=== PATIENT | female | born 1955 | race Caucasian/White ===

== ENCOUNTER → 2017-11-18 17:47 | Outpatient (REF) | payer SELFPAY | LOC: LAB 17:47 | PROVIDERS: PCP Family Medicine; Visit Provider Physician Assistant | DX: Z48.817 Encounter for surgical aftercare following surgery on the skin and subcutaneous tissue (principal) | CPT/HCPCS: 87070; 87075; 87077; 87186; 87205 ==

== ENCOUNTER 2019-02-05 14:41 | Emergency (ER) | payer OTHER, SELFPAY ==
[2019-02-05 14:50] VITALS: BP 149/75; PULSE 85; RESP 13; TEMP 36.5; O2SAT 99
--- NOTE | 2019-02-05 14:56 | DI.RAD.S_ITS ---
PROCEDURE: XR CHEST 1V INDICATIONS: chest pain TECHNIQUE: One view of the chest was acquired. COMPARISON: None. FINDINGS: Surgical changes and devices: None. Lungs and pleura: Lungs are clear. No pleural effusions or pneumothorax. Mediastinum: Mediastinal contours appear normal. Heart size is normal. Bones and chest wall: No suspicious bony lesions. Overlying soft tissues appear unremarkable. IMPRESSION: No acute cardiopulmonary disease. Dictated by: Pratima Herndon M.D. on 02/05/2019 at 15:17 Approved by: Pratima Herndon M.D. on 02/05/2019 at 15:17
[2019-02-05 15:01] LABS: Add Manual Diff / Slide Review NO; Basophils Absolute Auto 0 /uL (0-100); Basophils Percent Auto 1.1 % (0-2); Eosinophils Absolute Auto 100 /uL (0-450); Hemoglobin 13.1 g/dL (12.0-16.0); Lymphocytes Absolute Auto 1600 /uL (1100-4500); Lymphocytes Percent Auto 36.7 % (25-40); Mean Corpuscular HGB Conc 33.7 % (30-36); Mean Corpuscular Volume 88.9 fL (80-100); Monocytes Absolute Auto 400 /uL (0-900); Monocytes Percent Auto 8.3 % (3-14); Neutrophils Absolute Auto 2300 /uL (1500-7000); Neutrophils Percent Auto 51.9 % (50-75); Platelet Count 267 X10^3/uL (150-400); Red Blood Cell Count 4.39 X10^6/uL (4.0-5.2); Red Cell Distribution Width 13.4 % (11.6-14.8); White Blood Cell Count 4.4 X10^3/uL (4.5-11.0)
--- NOTE | 2019-02-05 15:04 | ED.CHESTPAIN ---
HPI - Chest Pain General Chief Complaint: Chest Pain Stated Complaint: Sent by physician for PVCs Time Seen by Provider: 02/05/19 14:52 Source: patient and old records reviewed Mode of arrival: Wheelchair Limitations: no limitations History of Present Illness HPI narrative: The patient is a 63-year-old female who presents with heart palpitations. She has had them off and on for number of years however the progressively are getting worse. She said that she had some this morning while she was eating breakfast if they get quite strong and she feels nauseous. They woke her from her sleep even. She does not really have chest pain she does have some shortness of breath well tapping no nausea or vomiting. MD complaint: other (Palpitations) Related Data Home Medications Medication Instructions Recorded Confirmed omeprazole 20 mg PO QDAY #0 06/21/16 sertraline 25 mg PO QDAY #0 06/21/16 Previous Rx's Medication Instructions Recorded nitrofurantoin monohyd/m-cryst 100 mg PO BID #10 cap 11/04/16 [Macrobid] metoprolol tartrate 12.5 mg PO DAILY #30 tab 02/05/19 Allergies Allergy/AdvReac Type Severity Reaction Status Date / Time penicillin G [PENICILLIN G] Allergy Unknown Unverified 02/05/19 14:49 Review of Systems Review of Systems Narrative: GENERAL: Denies chills, fatigue, malaise, fever, sweats, travel HEENT: Denies sinus pain, ear pain, sore throat, difficulty swallowing, neck pain RESPIRATORY: Denies dyspnea, cough, wheezing, hemoptysis, sputum. CARDIOVASCULAR: See HPI GASTROINTESTINAL: Denies nausea, vomiting, abdominal pain, diarrhea, constipation, melena. : Denies dysuria, frequency, incontinence, hematuria, urinary retention, flank pain. MUSCULOSKELETAL: Denies weakness, joint pain, or bony pain SKIN: No rash, no erythema, no pruritus NEUROLOGIC: Denies weakness, dizziness, headache, numbness, change in speech, confusion PSYCHIATRIC: No concerning psychosocial issues. 12 point review of systems is negative except for those stated above and HPI Patient History Medical History BRCA gene positive (Acute) Liver lesion, right lobe (Acute) Social History Smoking Status: Never smoker alcohol intake frequency: a few times a month Substance Use Type: does not use Exam Initial Vital Signs Initial Vital Signs: Vital Signs Temperature 97.7 F 02/05/19 14:50 Pulse Rate 85 02/05/19 14:50 Respiratory Rate 13 02/05/19 14:50 Blood Pressure 149/75 H 02/05/19 14:50 Pulse Oximetry 99 02/05/19 14:50 GENERAL: Well-appearing, well-nourished and in no acute distress. HEENT: Head atraumatic,EOMI, pupils reactive, face symmetric, moist mucous membranes CARDIOVASCULAR: Regular rate and rhythm without murmurs, rubs or gallops. RESPIRATORY: Breath sounds equal bilaterally, no wheezes rales or rhonchi. ABDOMEN: Soft, nontender. Normoactive bowel sounds all 4 quadrants. No guarding or rebound. EXTREMITIES: Normal range of motion, no clubbing or edema. Neurovascularly intact NEUROLOGICAL: Alert and oriented x4.Normal gait and speech. SKIN: Warm, dry, no laceration, no petechiae, no rashes or lesions. Course Orders Ordered: ED Orders 02/05/19 14:50 Complete Blood Count AUTO DIFF Stat Comprehensive Metabolic Panel Stat Lipase Stat Partial Thromboplastin Time Stat Prothrombin Time INR Stat Troponin & CK Cardiac Panel Stat 02/05/19 14:56 XR chest 1V Stat EKG-12 Lead Stat Vital Signs Vital signs: Vital Signs - 8 hr 02/05/19 14:50 02/05/19 16:11 02/05/19 16:14 Temperature 97.7 F Pulse Rate 85 78 69 Respiratory Rate 13 17 16 Blood Pressure 130/76 Blood Pressure [Left Arm] 149/75 H 118/94 H Pulse Oximetry 99 99 99 MDM - Chest Pain Lab Data Attestation: I reviewed the patient's lab results. Result diagrams: 02/05/19 14:50 02/05/19 14:50 Labs: Lab Results 02/05/19 02/05/19 02/05/19 Range/Units 14:50 14:50 14:50 WBC 4.4 L (4.5-11.0) X10^3/uL RBC 4.39 (4.0-5.2) X10^6/uL Hgb 13.1 (12.0-16.0) g/dL Hct 39.0 (36-46) % MCV 88.9 (80-100) fL MCH 30.0 (26-34) PG MCHC 33.7 (30-36) % RDW 13.4 (11.6-14.8) % Plt Count 267 (150-400) X10^3/uL Neut % (Auto) 51.9 (50-75) % Lymph % (Auto) 36.7 (25-40) % [place] % (Auto) 8.3 (3-14) % Eos % (Auto) 2.0 (2-4) % Baso % (Auto) 1.1 (0-2) % Neut # (Auto) 2300 (0020-6947) /uL Lymph # (Auto) 1600 (2062-6892) /uL [place] # (Auto) 400 (0-900) /uL Eos # (Auto) 100 (0-450) /uL Baso # (Auto) 0 (0-100) /uL PT 10.9 (10.1-12.7) SECONDS INR 0.9 (0.9-1.3) APTT 31 (26.4-36.2) SECONDS Sodium 139 (137-145) mmol/L Potassium 3.5 (3.4-5.1) mmol/L Chloride 103 (98-107) mmol/L Carbon Dioxide 28 (22-32) mmol/L BUN 13 (7-17) mg/dL Creatinine 0.60 (0.52-1.04) mg/dL Estimated GFR > 60.0 (>60) mL/min BUN/Creatinine Ratio 21.7 (6-22) Glucose 106 (80-110) mg/dL Calcium 9.5 (8.4-10.2) mg/dL Total Bilirubin 0.5 (0.2-1.3) mg/dL AST 31 (14-36) IU/L ALT 18 (<35) IU/L Alkaline Phosphatase 57 (38-126) U/L Total Creatine Kinase 71 (30-135) U/L CK-MB (CK-2) TNP CK-MB (CK-2) Rel Index TNP Troponin I < 0.012 (0.01-0.034) ng/mL Total Protein 7.6 (6.3-8.2) g/dL Albumin 4.7 (3.5-5.0) g/dL Globulin 2.9 (1.7-4.1) g/dL Albumin/Globulin Ratio 1.6 (1.0-2.8) Lipase 223 (23-300) U/L Imaging Data Chest x-ray: Radiologist's impression: PROCEDURE: XR CHEST 1V INDICATIONS: chest pain TECHNIQUE: One view of the chest was acquired. COMPARISON: None. FINDINGS: Surgical changes and devices: None. Lungs and pleura: Lungs are clear. No pleural effusions or pneumothorax. Mediastinum: Mediastinal contours appear normal. Heart size is normal. Bones and chest wall: No suspicious bony lesions. Overlying soft tissues appear unremarkable. IMPRESSION: No acute cardiopulmonary disease. Dictated by: Pratima Herndon M.D. on 02/05/2019 at 15:17 ECG Data Attestation: I personally reviewed and interpreted this ECG as follows: Prior ECG tracings: not available for review Interpretation: Normal sinus rhythm rate 76 p.r. interval 165 QRS 88 QTC 451 PVC noted no previous EKG no ST elevations depressions or T-wave inversions. MDM Narrative Medical decision making narrative: Patient is noted to have frequent PVCs on the monitor. She is symptomatic. At this time I think patient would benefit from low dose of beta-vicki. Discharge Plan Departure Patient Disposition: Home Clinical Impression: Frequent PVCs Discharge Date/Time: 02/05/19 16:32 Instructions: Premature Ventricular Beats Activity Restrictions/Additional Instructions: *You have been diagnosed with frequent PVCs *What to do: Typically PVCs are benign however your quite symptomatic. We can start you on a low dose metoprolol to see if it helps your symptoms. *Continue to take medications as directed Metoprolol 12.5 mg once daily *Follow up with your primary care provider in 2-3 days *Return to ER if you should have increasing chest palpitations dizziness lightheadedness or any new, worsening or concerning symptoms Prescriptions: New metoprolol tartrate 25 mg tablet 12.5 mg PO DAILY Qty: 30 RF: 0 No Action sertraline 25 MG tablet 25 mg PO QDAY Qty: 0 RF: 0 omeprazole 20 MG capsule,delayed release(DR/EC) 20 mg PO QDAY Qty: 0 RF: 0 nitrofurantoin monohyd/m-cryst [Macrobid] 100 MG capsule 100 mg PO BID Qty: 10 RF: 0 Referrals: Sajan Bustamante MD [Primary Care Provider] -
[2019-02-05 15:08] LABS: INR 0.9 (0.9-1.3); Prothrombin Time 10.9 SECONDS (10.1-12.7)
[2019-02-05 15:11] LABS: PTT Partial Thromboplastin Tim 31 SECONDS (26.4-36.2)
[2019-02-05 15:17] LABS: Alanine Aminotransferase 18 IU/L (<35); Albumin 4.7 g/dL (3.5-5.0); Albumin Globulin Ratio 1.6 (1.0-2.8); Alkaline Phosphatase 57 U/L (38-126); Aspartate Aminotransferase 31 IU/L (14-36); BUN Creatinine Ratio 21.7 (6-22); Bilirubin Total 0.5 mg/dL (0.2-1.3); Blood Urea Nitrogen 13 mg/dL (7-17); Calcium 9.5 mg/dL (8.4-10.2); Carbon Dioxide 28 mmol/L (22-32); Chloride 103 mmol/L (98-107); Creatine Kinase 71 U/L (30-135); Estimated Glomerular Filt Rate > 60.0 mL/min (>60); Globulin 2.9 g/dL (1.7-4.1); Glucose 106 mg/dL (80-110); HEMOLYSIS 36 (0-50); Lipase 223 U/L (23-300); Potassium 3.5 mmol/L (3.4-5.1); Sodium 139 mmol/L (137-145); Total Protein 7.6 g/dL (6.3-8.2)
[2019-02-05 15:29] LABS: Troponin I < 0.012 ng/mL (0.01-0.034)
[2019-02-05 16:11] VITALS: BP 118/94; PULSE 78; RESP 17; O2SAT 99
[2019-02-05 16:14] VITALS: BP 130/76; PULSE 69; RESP 16; O2SAT 99
== END 2019-02-05 16:32 | disposition home or self-care (01) ==
PROVIDERS: Emergency Provider Emergency Medicine; PCP Family Medicine
DX: I49.3 Ventricular premature depolarization (principal)
CPT/HCPCS: 36415; 71045; 80053; 82550; 83690; 84484; 85025; 85610; 85730; 93005; 99283; 99285

== ENCOUNTER 2019-06-04 11:48 | Day surgery (SDC) | payer MEDICARE, OTHER, SELFPAY ==
[2019-06-04] MEDS: SODIUM CHLORIDE 0.9% 1,000 ML 200 ML IV (12:15)
[2019-06-04] MEDS: HYOSCYAMINE 0.125 MG TABLET PO (12:28)
[2019-06-04 12:29] VITALS: BP 128/82; PULSE 80; RESP 20; TEMP 36.9; O2SAT 100; BMI 23.3
--- NOTE | 2019-06-04 12:47 | PM.HP.1 ---
History of Present Illness History of Present Illness Date Patient Seen: 06/04/19 Chief complaint: [id number] Narrative: 64 year old female comes in today for consideration of a screening colonoscopy. Last colonoscopy in 2009 to the splenic flexure only, secondary to angulation. There have been no lower GI symptoms suggesting disease such as change in bowel habits, bleeding, abdominal pain or anemia. She does have a history of colon cancer in her mother, thought to be metastatic from the breast. Overall health issues have been stable, including no major cardiac events for at least 6 weeks. 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 Cateract surger - bilateral 10/2016 - [facility] Laprascopy (ovaries and tubes) 10/14 - Dr. 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, Teacher Household Members: Education: BA in education Patient History Family & Social History Social History: household members spouse Tobacco & Substance use: Smoking Status Never smoker alcohol intake current alcohol intake frequency a few times a week Substance Use Type does not use Meds Home Medications and Allergies Home Medications Medication Instructions Recorded Confirmed Type omeprazole 20 mg PO QDAY #0 06/21/16 06/04/19 History metoprolol tartrate 12.5 mg PO DAILY #30 tab 02/05/19 06/04/19 Rx Allergies Allergy/AdvReac Type Severity Reaction Status Date / Time penicillin G [PENICILLIN G] Allergy Unknown Rash Verified 06/04/19 12:25 Review of Systems Review of Systems ROS: Yes All systems reviewed with the patient and are negative except as otherwise documented Exam Vital Signs (past 8 hours): - 06/04/19 12:29 Temperature 98.5 F Pulse Rate 80 Respiratory Rate 20 Blood Pressure 128/82 Pulse Oximetry 100 Oxygen Delivery Method Room Air Narrative Exam Narrative: General: Alert and oriented, appearing stated age and in no acute distress. Head: Head normocephalic/atraumatic. Neck: Neck soft and supple, no lymphadenopathy. Lungs: Clear to auscultation bilaterally, no wheezes, rhonchi or rales. Heart: Normal S1 and S2 with regular rate and rhythm, no audible murmurs, rubs or gallops. Abdomen: Soft, non-tender, non-distended, no organomegaly. Possitive bowel sounds. Psych: Alert and oriented x 3. Assessment & Plan Assessment & Plan narrative: 1. Screening for colon cancer 2. Family history of colon cancer, thought to be metastatic from breast Plan for colonoscopy. The nature and character of the procedure as well as anticipated results were discussed. The possibility of not completing the procedure was also discussed. Possible complications including aspiration pneumonia, bleeding, perforation and reaction to medications either for sedation or preparation and missed lesions were discussed. Questions were answered and proceeding to the colonoscopy was elected. Informed consent signed. I sincerely appreciate the referral allowing me to participate in this patient's care. Please contact me with any questions or concerns.
--- NOTE | 2019-06-04 12:51 | PM.OP.ENDO ---
Operative Date/Time/Diagnoses Date of procedure: 06/04/19 Pre-op diagnosis: 1. Screening for colon cancer 2. Family history of colon cancer Post-op diagnosis: other (1. Normal colonoscopy) Procedure & Clinicians Study performed: Colonoscopy Same procedure as scheduled: Yes Indications: 1. Family history of colon cancer, metastatic from breast 2. Screening for colon cancer Surgeon: Natasha Telles Procedure Notes SCOAP/Timeout: 13:13 Procedure in detail: ENDOSCOPIST: Natasha Telles MD Sedation RN: Alexandra Comer RN Sedation start time: 1:15 p.m. Sedation end time: 1:42 p.m. PROCEDURE: Colonoscopy INDICATIONS: 1. Family history of colon cancer 2. Screening for colon cancer 3. History of incomplete colonoscopy MEDICATION: Levsin 0.125 mg sublingual, incremental doses of Versed and fentanyl until appropriate level sedation achieved. ASA CLASS: 2 CECAL WITHDRAWAL TIME: 7 minutes COMPLICATIONS: None. EXTENT OF PROCEDURE: Cecum. QUALITY OF PREP: Good with portions of liquid stool. PROCEDURE: Prior to insertion of the colonoscope, a digital rectal examination was accomplished with circumferential palpation of the distal rectal mucosa without significant findings being noted. The high-definition pediatric colonoscope was passed into the rectum in the usual fashion and advanced over to the cecum without difficulty. The ileocecal valve, appendiceal stoma, and medial wall all could be inspected and no abnormalities were seen. ASCENDING COLON: As the colonoscope was withdrawn, care was taken to expose and inspect the haustral folds and no abnormalities were seen. HEPATIC FLEXURE: Normal no polyps, diverticula or other abnormalities. TRANSVERSE COLON: Normal no polyps, diverticula or other abnormalities. DESCENDING COLON: Normal no polyps, diverticula or other abnormalities. SIGMOID COLON: Normal no polyps, diverticula or other abnormalities. RECTUM: Normal. J maneuver was produced. There was no significant perianal disease. The J maneuver was broken. The remainder of the rectum was inspected and there was no external hemorrhoid disease. The scope was withdrawn. IMPRESSION: 1. Normal colonoscopy PLAN: 1. Repeat colonoscopy in 10 years. The possibility of a missed lesion including a malignancy has been discussed with the patient previously. Potential alarm symptoms have been discussed and should be reported immediately. Scope withdrawal time: 7 Sedation minutes: 28 Specimen(s): none sent Complications: none Post-procedure Recommendations: Colonscopy in 10 years Follow up: as needed Disposition: PACU
[2019-06-04] MEDS: MIDAZOLAM 5 MG/5 ML VIAL IV (13:37)
[2019-06-04] MEDS: fentaNYL 250 MCG/5 ML INJ IV (13:37)
[2019-06-04 13:51] VITALS: BP 111/75; PULSE 77; RESP 16; TEMP 36.1; O2SAT 98
[2019-06-04 13:55] VITALS: BP 118/88; PULSE 82; RESP 12; O2SAT 99
[2019-06-04 14:00] VITALS: BP 117/83; PULSE 74; RESP 12; O2SAT 99
[2019-06-04 14:15] VITALS: BP 117/74; PULSE 76; RESP 15; TEMP 36.7; O2SAT 100
--- NOTE | 2019-06-04 14:26 | SUR.PHASEII ---
Entered surgical site in pain assesment in error.
== END 2019-06-04 14:27 | disposition home or self-care (01) ==
PROVIDERS: PCP Family Medicine; Referring Provider Student in an Organized Health Care Education/Training Program; Visit Provider Student in an Organized Health Care Education/Training Program
PROC: 0DJD8ZZ Inspection of Lower Intestinal Tract, Via Natural or Artificial Opening Endoscopic (ICD-10-PCS; CPT 45378; principal; 2019-06-04 13:00)
DX: Z12.11 Encounter for screening for malignant neoplasm of colon (principal); Z80.0 Family history of malignant neoplasm of digestive organs
CPT/HCPCS: G0105; J2250; J3010

== ENCOUNTER → 2020-06-12 10:09 | Outpatient (CLI) | payer MEDICARE, OTHER, SELFPAY | PROVIDERS: PCP Internal Medicine; Referring Provider Internal Medicine; Visit Provider Internal Medicine | DX: M85.851 Other specified disorders of bone density and structure, right thigh (principal); Z78.0 Asymptomatic menopausal state; Z85.3 Personal history of malignant neoplasm of breast | CPT/HCPCS: 77080; 77081 ==

== ENCOUNTER → 2022-06-26 10:11 | Outpatient (CLI) | payer MEDICARE, OTHER, SELFPAY ==
--- NOTE | 2022-06-26 10:24 | DI.DEXA.S_ITS ---
Bone Density Report Name: JAYNE TAPIA Age: 67 Sex: Female Ethnicity: White Date of : 1955 Indication: postmenopausal; screening for osteoporosis; Referring Provider: NIKKI NAVA Study: Bone densitometry was performed. Exam Date: June 26, 2022 Accession number: [id number] Bone Density: Region BMD T-score Z-score Classification AP Spine(L2, L3, L4) 1.033 -0.4 1.6 Normal Femoral Neck (Left) 0.676 -1.6 0.1 Osteopenia Total Hip (Left) 0.831 -0.9 0.5 Normal Femoral Neck (Right) 0.673 -1.6 0.1 Osteopenia Total Hip (Right) 0.847 -0.8 0.6 Normal Total Hip Mean 0.839 -0.9 0.6 Normal World Health Organization criteria for BMD impression classify patients as: Normal (T-score at or above -1.0), Osteopenia (T-score between -1.0 and -2.5), or Osteoporosis (T-score at or below -2.5). 10-year Fracture Risk(1): Major Osteoporotic Fracture 9.4% Hip Fracture 1.2% Reported Risk Factors: [place] (), Neck BMD=0.676, BMI=23.5 (1) FRAX(R) Version 3.08. Fracture probability calculated for an untreated patient. Fracture probability may be lower if the patient has received treatment. Previous Exams: -- Region Exam Age BMD T-score BMD Change BMD Change Date g/cm2 vs Baseline vs Previous -- AP Spine (L2-L4) 06/26/2022 67 1.033 -0.4 -0.079 (-7.1%)# -0.079 (-7.1%)# 06/12/2020 65 1.112 0.3 Total Hip(Left) 06/26/2022 67 0.831 -0.9 0.015 (1.9%)# 0.015 (1.9%)# 06/12/2020 65 0.816 -1.0 Total Hip(Right) 06/26/2022 67 0.847 -0.8 0.002 (0.2%)# 0.002 (0.2%)# 06/12/2020 65 0.845 -0.8 -- *Denotes significance at 95% confidence level, LSC for AP Spine = 0.022 g/cm2, LSC for Total Hip = 0.027 g/cm2 # Denotes dissimilar scan types or analysis methods Impression: The patient has low bone mass, based on the Left Femoral Neck T-score. The patient has an estimated ten-year risk of hip fracture of 1.2% and an estimated ten-year risk of major fracture of 9.4%, based on the WHO FRAX algorithm. No significant bone loss was observed. Discussion: BONE DENSITY IS LOW AT ONE OR MORE SKELETAL SITES. This patient's lowest T-score is low at one or more skeletal sites. It meets the World Health Organization's (WHO) criteria for ?low bone mass? (T-score between -1.0 and -2.5). The patient's 10-year risk of fracture as calculated by FRAX is less than the threshold where pharmacological therapy is recommended by the National Osteoporosis Foundation (NOF). However, all treatment decisions require clinical judgment and consideration of individual patient factors, including patient preferences, comorbidities, previous drug use, risk factors not captured in the FRAX model (e.g., frailty, falls, vitamin D deficiency, increased bone turnover, interval significant decline in bone density) and possible under or overestimation of fracture risk by FRAX. The patient should follow a healthful lifestyle (good nutrition with adequate calcium and vitamin D, and appropriate weight-bearing exercise). Follow-Up: Consider repeating this study in 2 to 3 years to reassess this patient's status, or sooner if there is some new clinical indication. Reported by: EDWARDO JAUREGUI M.D. on 06/26/2022 10:35:00 AM.
== END ==
PROVIDERS: PCP Internal Medicine; Referring Provider Internal Medicine; Visit Provider Internal Medicine
DX: Z78.0 Asymptomatic menopausal state (principal); Z13.820 Encounter for screening for osteoporosis; M85.852 Other specified disorders of bone density and structure, left thigh
CPT/HCPCS: 77080

== ENCOUNTER → 2022-08-05 06:55 | Outpatient (CLI) | payer MEDICARE, OTHER, SELFPAY ==
--- NOTE | 2022-08-05 | DI.ECHO.S_ITS ---
[facility] +---------+ : : [id number] : [place] : : : : [phone] : : : : Phone: [phone]---------+ Echocardiogram Report + + :Name: JAYNE TAPIA Study Date: 08/05/2022 Height: 67 in : :[facility] ReadingLocation: Weight: 150 lb : : Gender: Female BSA: 1.8 m2 : :: 1955 Age: 67 yrs BP: 116/85 mmHg: :Reason For Study: VENTRICULAR PREMATURE DEPOLARIZATION : :Ordering Physician: ELIJAH, : :NIKKI Performed By: Marisel Valle : :Referring: NIKKI NAVA : + + Interpretation Summary The patient was in normal sinus rhythm during the exam. The patient had frequent PVCs during the exam. The left ventricle is mildly dilated. Previously normal size. Left ventricular ejection fraction is estimated to be 45 +/- 5%. Previously LVEF 55 to 60%. There is a mild dyssynchronous contraction pattern, consistent with a conduction abnormality. The right ventricle is normal in size and function. There is moderate mitral regurgitation. Compared to the prior echo study, there has been an increase in the severity of mitral regurgitation. There is mild tricuspid regurgitation. The right ventricular systolic pressure is estimated to be at least 19 mmHg based on an estimated right atrial pressure of 3 mm Hg. Procedure: A two-dimensional transthoracic echocardiogram with color flow and Doppler was performed. The study quality was technically adequate. Comparison is made with the echocardiogram of 06/14/2019. The patient had frequent PVCs during the exam. The patient was in normal sinus rhythm during the exam. Left Ventricle: The left ventricle is mildly dilated. There is normal left ventricular wall thickness. There is no thrombus. Left ventricular ejection fraction is estimated to be 45 +/- 5%. There is a mild dyssynchronous contraction pattern, consistent with a conduction abnormality. Diastolic parameters suggest probable normal left ventricular diastolic function and normal filling pressures. Right Ventricle: The right ventricle is normal in size and function. Atria: The left atrial size is normal. There has been no significant change since the previous study. Right atrial size is normal. There is no Doppler evidence for an interatrial shunt. Mitral Valve: The mitral valve leaflets appear normal. There is no evidence of stenosis, fluttering, or prolapse. There is moderate mitral regurgitation. Compared to the prior echo study, there has been an increase in the severity of mitral regurgitation. Aortic Valve: The aortic valve is trileaflet. The aortic valve opens well. There is no aortic valve stenosis. No aortic regurgitation is present. Tricuspid Valve: The tricuspid valve is normal in structure and function. There is mild tricuspid regurgitation. The right ventricular systolic pressure is estimated to be at least 19 mmHg based on an estimated right atrial pressure of 3 mm Hg. Pulmonic Valve: The pulmonic valve leaflets are thin and pliable; valve motion is normal. There is mild pulmonic regurgitation. Great Vessels: The aortic root is normal size. The dimensions of the ascending aorta are normal. The IVC is of normal diameter and collapses greater than 50% with a sniff. This suggests a low right atrial pressure of 3 mm Hg. Pericardium/ Pleura There is no pericardial effusion. There is no pleural effusion. MMode/2D Measurements & Calculations LVIDd: 5.5 cm LVOT diam: 2.0 cm LVIDs: 4.0 cm Ao root diam: 2.9 cm FS: 26.6 % asc Aorta Diam: 3.5 cm EPSS: 1.2 cm Ao Arch Diam (Prox Trans): 3.0 cm IVSd: 0.74 cm LVPWd: 0.58 cm LV cortez. diameter/BSA (cm/m^2): 3.1 LV sys. diameter/BSA (cm/m^2): 2.3 LA A2 area: 14.7 cm2 RA long axis: 3.8 cm LA A4 area: 17.8 cm2 RA area: 10.8 cm2 LA length (vol): 4.5 cm RA vol: 26.1 ml LA vol: 50.0 ml RA : 14.6 ml/m2 LA vol index: 27.9 ml/m2 IVC diam: 1.8 cm RVD1 (basal): 3.8 cm RVD2 (mid): 3.2 cm TAPSE: 2.9 cm Doppler Measurements & Calculations Ao V2 max: 113.7 cm/sec LVOT Max Marlon: 72.7 cm/sec Ao V2 mean: 81.7 cm/sec LV V1 max P.1 mmHg Ao max P.2 mmHg LV V1 VTI: 14.0 cm Ao mean P.9 mmHg CHRISTIANO(I,D): 2.0 cm2 Ao V2 VTI: 20.5 cm CHRISTIANO(V,D): 1.9 cm2 sev ratio: 0.68 CHRISTIANO indexed to BSA (cm^2/m^2): 1.1 MV E max marlon: 56.9 cm/sec TR max marlon: 199.8 cm/sec MV A max marlon: 56.5 cm/sec TR max P.0 mmHg MV E/A: 1.0 PA V2 max: 84.2 cm/sec Med Peak E' Marlon: 9.7 cm/sec PA V2 mean: 54.3 cm/sec E/E' med: 5.9 PA mean P.5 mmHg Lat Peak E' Marlon: 8.4 cm/sec PA pr(Accel): 43.0 mmHg E/E' lat: 6.8 E/e' average: 6.3 MV dec time: 0.16 sec SV(LVOT): 42.0 ml Reading Physician:05:05 PM
== END ==
PROVIDERS: PCP Internal Medicine; Referring Provider Internal Medicine; Visit Provider Internal Medicine
DX: I08.1 Rheumatic disorders of both mitral and tricuspid valves (principal); I49.3 Ventricular premature depolarization
CPT/HCPCS: 93306